=== PATIENT | male | born 1970 | race Caucasian/White ===

== ENCOUNTER → 2016-11-28 | Outpatient (CLI) | payer MEDICAID | END | disposition home or self-care (01) | LOC: PTH.S 11-23 16:30 | DX: Z51.81 Encounter for therapeutic drug level monitoring (principal); F25.0 Schizoaffective disorder, bipolar type; Z79.899 Other long term (current) drug therapy ==

== ENCOUNTER 2016-12-29 15:34 | Inpatient (IN) | payer MEDICAID ==
[~2016-12-29] VITALS: Ht 182.9 cm; Wt 126.3 kg
--- NOTE | 2017-01-02 09:05 | DS ---
ADMIT: 12/29/2016 RM/LOC: 311 [facility] MR#: [id number] [address] [address] MAR[facility] CRONIN [address] [place] [address] Discharge Summary SEX: M AGE: 46 : 1970 ADMISSION DATE: 12/29/2016 DISCHARGE DATE: 12/30/2016 CONSULTATIONS: Psychiatry. FINAL DIAGNOSES: 1. Intentional overdose. 2. Anxiety. 3. Schizoaffective and schizophrenic disorder. 4. Alcoholism. REASON FOR ADMISSION: The patient had taken all of his Klonopin he had just had filled from [facility] essentially in one day. Not quite all but a large portion of it. Was obtunded at admission to the ER. Admitted for medical stabilization. HOSPITAL COURSE: The patient was just monitored. He improved. Was very coherent. Somewhat agitated. Made some vague comments about violence if he did not get his medications or get his anxiety under control. Was very open to the idea of inpatient psychiatry treatment and requested it. Arrangements were made, and he is transferred to inpatient psychiatry treatment. DISCHARGE MEDICATIONS: Please see discharge MAR. Further to be titrated via inpatient psychiatry. Jonny Covarrubias MD/ camilla JOB #: [id number] CC: Jonny Covarrubias MD, Attending Physician Jonny Covarrubias MD, Family Physician . [facility]
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
--- NOTE | 2017-01-28 21:14 | ER ---
ADMIT: 12/29/2016 RM/LOC: 311 [facility] MR#: [id number] [address] [address] [address] CRONIN [address] [place] [address] Emergency Room Report SEX: M AGE: 46 : 1970 DATE: 12/29/2016 HISTORY OF PRESENT ILLNESS: A 46-year-old who intentionally took several of his Klonopin in an attempt to "get high" so he did this around 10:00 this morning. Apparently, was at [facility] where he became somnolent. They subsequently called his mother whom he lives with. She in turn called the ambulance and the police. The patient is abusive, obnoxious, and refuses to answer questions, but he did state he took the Klonopin in an attempt to get high. He said he has done it multiple times in the past trying to get high. Would not cooperate with any further answers. PHYSICAL EXAMINATION: GENERAL: An agitated 46-year-old, who is belligerent. HEENT: Normocephalic and atraumatic. His pupils are equal and reactive. LUNGS: Clear to auscultation. CARDIOVASCULAR: No murmur. Regular rate and rhythm. ABDOMEN: Obese, soft, nontender. Positive bowel sounds. No masses, guarding, or rebound. Extremities are unremarkable. Would not cooperate with the [facility] exam. EMERGENCY ROOM COURSE: A CBC, CMP, and urine triage were obtained. Interestingly, the urine triage was negative for marijuana and benzodiazepines. I did try a small dose of Romazicon with no effect on this individual. He became somnolent, but easily arousable, and he did drink 100 g of charcoal, subsequently admitted with intentional overdose in an attempt to get high. Himanshu Gallo MD/ lenin JOB #: [id number] CC: Jonny Covarrubias MD, Attending Physician Jonny Covarrubias MD, Family Physician
== END 2016-12-30 15:05 | DRG 917 ==
LOC: ER 15:34 → 3ICU 17:40
PROVIDERS: ADMIT Internal Medicine
DX: T42.4X2A Poisoning by benzodiazepines, intentional self-harm, initial encounter (principal); G92 Toxic encephalopathy; F25.9 Schizoaffective disorder, unspecified; F20.9 Schizophrenia, unspecified; F17.210 Nicotine dependence, cigarettes, uncomplicated; F10.20 Alcohol dependence, uncomplicated; F41.9 Anxiety disorder, unspecified